=== PATIENT | female | born 1930 | race Two or more races ===

== ENCOUNTER → 2017-08-18 | Outpatient (CLI) | payer MEDICAID, MEDICARE | END | disposition home or self-care (01) | LOC: CVU 15:56 | PROVIDERS: ATTEND Internal Medicine Cardiovascular Disease | DX: I08.2 Rheumatic disorders of both aortic and tricuspid valves (principal); E11.9 Type 2 diabetes mellitus without complications; I10 Essential (primary) hypertension; I25.2 Old myocardial infarction; Z95.1 Presence of aortocoronary bypass graft | CPT/HCPCS: 93306 ==

== ENCOUNTER 2018-12-24 11:13 | Outpatient (CLI) | payer MEDICARE, MEDICAID | END 2018-12-24 23:59 | disposition home or self-care (01) | LOC: CFH 11:13 | PROVIDERS: ATTEND Internal Medicine Cardiovascular Disease | DX: R60.9 Edema, unspecified (principal); M79.605 Pain in left leg ==